=== PATIENT | female | born 1930 | race Hispanic/Latino ===

== ENCOUNTER 2019-08-07 14:40 | Emergency (ER) | payer MEDICARE ==
[2019-08-07 16:41] LABS: BASOPHILS % (AUTO) 0.3 % (0.0-5.0); EOSINOPHILS % (AUTO) 0.7 % (0.0-8.0); HEMATOCRIT 32.5 % (36-48); LYMPHOCYTES % (AUTO) 6.4 % (21.0-51.0); MEAN CORPUSCULAR HEMOGLOBIN 29.3 pg (27.0-33.0); MEAN CORPUSCULAR HGB CONC 31.7 g/dL (32.0-36.0); MEAN CORPUSCULAR VOLUME 92.3 fL (79-99); MONOCYTES % (AUTO) 7.3 % (3.0-13.0); NEUTROPHILS % (AUTO) 84.8 % (40.0-77.0); PLATELET COUNT (AUTO) 356 K/uL (130-400); RED BLOOD CELL COUNT(AUTO) 3.52 MIL/uL (4.00-5.50); RED CELL DISTRIBUTION WIDTH 14.3 % (11.0-15.5); WHITE BLOOD COUNT (AUTO) 10.9 K/uL (4.8-10.8)
[2019-08-07 16:52] LABS: CREATININE 1.2 mg/dL (0.5-1.5); POTASSIUM 4.1 mmol/L (3.5-5.1)
[2019-08-07 16:55] LABS: INR 1.23 (0.85-1.15); PARTIAL THROMBOPLASTIN TIME 41.4 SEC (26.3-35.5); PROTHROMBIN TIME 13.2 SEC (9.6-11.6)
[2019-08-07 16:56] LABS: BILIRUBIN,TOTAL 0.3 mg/dL (0.2-1.0); TOTAL PROTEIN, SERUM 7.2 g/dL (6.0-8.3)
[2019-08-07] MEDS ORDERED: KETOROLAC TROMETHAMINE 15MG/ML ONE (17:09)
[2019-08-07] MEDS ORDERED: ONDANSETRON HCL 4 MG/2 ML VIAL ONE (18:12)
[2019-08-07] MEDS ORDERED: MORPHINE SULFATE 2 MG/ML 1ML SYG ONE (18:12)
== END 2019-08-07 20:33 | disposition home or self-care (01) ==
LOC: EDBD 14:40 → EDH 14:40
DX: M54.5 Low back pain (principal); I89.0 Lymphedema, not elsewhere classified; I10 Essential (primary) hypertension; E07.9 Disorder of thyroid, unspecified; Z79.899 Other long term (current) drug therapy; Z85.41 Personal history of malignant neoplasm of cervix uteri
CPT/HCPCS: 36415; 80053; 85025; 85610; 85730; 96374; 96375; 99285; J1885; J2405

== ENCOUNTER 2019-10-25 13:41 | Inpatient (IN) | payer MEDICARE ==
[~2019-10-25] VITALS: Ht 152.4 cm; Wt 43.5 kg
[2019-10-25] MEDS ORDERED: CEFTRIAXONE SODIUM 2 GM VIAL ONE (14:12)
[2019-10-25 14:51] LABS: BASOPHILS % (AUTO) 0.1 % (0.0-5.0); EOSINOPHILS % (AUTO) 0.1 % (0.0-8.0); HEMATOCRIT 37.3 % (36-48); LYMPHOCYTES % (AUTO) 5.1 % (21.0-51.0); MEAN CORPUSCULAR HEMOGLOBIN 29.2 pg (27.0-33.0); MEAN CORPUSCULAR HGB CONC 31.1 g/dL (32.0-36.0); MONOCYTES % (AUTO) 5.4 % (3.0-13.0); NEUTROPHILS % (AUTO) 88.7 % (40.0-77.0); PLATELET COUNT (AUTO) 361 K/uL (130-400); RED BLOOD CELL COUNT(AUTO) 3.97 MIL/uL (4.00-5.50); RED CELL DISTRIBUTION WIDTH 18.2 % (11.0-15.5); WHITE BLOOD COUNT (AUTO) 16.2 K/uL (4.8-10.8)
[2019-10-25 15:19] LABS: INR 1.12 (0.85-1.15); PARTIAL THROMBOPLASTIN TIME 30.5 SEC (26.3-35.5)
[2019-10-25 15:26] LABS: CREATININE 1.3 mg/dL (0.5-1.5); POTASSIUM 4.3 mmol/L (3.5-5.1)
[2019-10-25 15:37] LABS: ALBUMIN 2.5 g/dL (3.5-5.0); BILIRUBIN,TOTAL 0.3 mg/dL (0.2-1.0); TOTAL PROTEIN, SERUM 7.1 g/dL (6.0-8.3); TROPONIN I 0.31 ng/mL (0.00-0.06)
[2019-10-25 16:38] LABS: ABG BASE EXCESS -6.8 mmol/L (-2.0-3.0); ABG HCO3 15.5 mmol/L (21.0-28.0); ABG OXYGEN SATURATION 94.9 % (95.0-99.0); ABG PCO2 24 mmHg (32-45)
[2019-10-25] MEDS ORDERED: IOHEXOL 350 MG/ML 100ML INFUS..BTL IV ONE (16:42)
[2019-10-25] MEDS ORDERED: LIDOCAINE HCL-MPF 1% 2ML VIAL IV PRN (18:30)
[2019-10-25] MEDS ORDERED: POTASSIUM CHLORIDE 20 MEQ ERTAB PO PRN (18:30)
[2019-10-25] MEDS ORDERED: ZOLPIDEM TARTRATE 5 MG TAB PO PRN (18:30)
[2019-10-25] MEDS ORDERED: HYDRALAZINE HCL 20 MG/ML VIAL IV PRN (18:30)
[2019-10-25] MEDS ORDERED: DEXTROSE 50%-WATER 50 ML DISP.SYRIN IV PRN (18:30)
[2019-10-25] MEDS ORDERED: LACTULOSE 20 GM/30 ML UDCUP PO PRN (18:30)
[2019-10-25] MEDS ORDERED: MAGNESIUM 2GM PREMIX 50ML 50 ML IV PRN (18:30)
[2019-10-25] MEDS ORDERED: ONDANSETRON HCL 4 MG/2 ML VIAL IVP PRN (18:30)
[2019-10-25] MEDS ORDERED: POTASSIUM CHLORIDE 20MEQ/100ML 100 ML IV PRN (18:30)
[2019-10-25] MEDS ORDERED: GLUCAGON 1MG KIT 1 MG ML IM PRN (18:30)
[2019-10-25] MEDS ORDERED: LOPERAMIDE HCL 2 MG CAP PO PRN (18:30)
[2019-10-25] MEDS ORDERED: POTASSIUM CHLORIDE 10% ELIXIR 20 MEQ/15 ML UDCUP PO PRN (18:30)
[2019-10-25 19:00] LABS: APPEARANCE,URINE Clear (CLEAR); BILIRUBIN,URINE Negative (NEGATIVE); COLOR,URINE Yellow (YELLOW); GLUCOSE, URINE (UA) Negative (NEGATIVE); KETONES,URINE Negative (NEGATIVE); LEUKOCYTE ESTERASE ,URINE Negative (NEGATIVE); NITRATE,URINE Negative (NEGATIVE); OCCULT BLOOD,URINE Negative (NEGATIVE); PROTEIN,URINE Negative (NEGATIVE)
[2019-10-25] MEDS: ENOXAPARIN SODIUM 60 MG/0.6 ML SQ SCH (21:00)
[2019-10-25] MEDS: INSULIN HUMULIN R 100 UNIT/ML 3ML SQ SCH (21:00)
[2019-10-25] MEDS: ZOSYN 3.375GM+NS 50ML 50 ML IV SCH (21:00)
[2019-10-25] MEDS ORDERED: SODIUM CHLORIDE 0.9% 500ML 500 ML IV SCH (21:15)
[2019-10-25] MEDS: SODIUM CHLORIDE 0.9% 1000ML 1,000 ML IV SCH (21:15)
[2019-10-25] MEDS ORDERED: ENOXAPARIN SODIUM 60 MG/0.6 ML SQ ONE (21:17)
[2019-10-26] VITALS: BP 150/90
[2019-10-26 04:00] VITALS: BP 132/62
--- NOTE | 2019-10-26 05:36 | NUR ---
ASSESSMENT PT. IS ALERT AND ORIENTED TIMES 4 NO COMPLAINTS OF ANY PAIN. THE PATIENT IS SATING MID 90'S ON 2 LITERS PT. HAS NS GOING AT 75 NO OTHER COMPLIANTS AT THIS TIME VITALS ARE STABLE WILL CONTINUE TO MONITOR.
[2019-10-26] MEDS: INSULIN HUMULIN R 100 UNIT/ML 3ML SQ SCH ×4 (05:50→20:05)
[2019-10-26 06:13] LABS: BASOPHILS % (AUTO) 0.1 % (0.0-5.0); EOSINOPHILS % (AUTO) 0.1 % (0.0-8.0); HEMATOCRIT 34.6 % (36-48); MEAN CORPUSCULAR HEMOGLOBIN 29.3 pg (27.0-33.0); MEAN CORPUSCULAR HGB CONC 31.2 g/dL (32.0-36.0); MONOCYTES % (AUTO) 4.8 % (3.0-13.0); NEUTROPHILS % (AUTO) 90.1 % (40.0-77.0); PLATELET COUNT (AUTO) 315 K/uL (130-400); RED BLOOD CELL COUNT(AUTO) 3.68 MIL/uL (4.00-5.50); RED CELL DISTRIBUTION WIDTH 17.9 % (11.0-15.5)
[2019-10-26 06:38] LABS: ALBUMIN 2.2 g/dL (3.5-5.0); BILIRUBIN,TOTAL 0.3 mg/dL (0.2-1.0); CREATININE 1.1 mg/dL (0.5-1.5); MAGNESIUM 1.9 mg/dL (1.80-2.40); PHOSPHORUS 4.3 mg/dL (2.5-4.9); POTASSIUM 4.3 mmol/L (3.5-5.1); TOTAL PROTEIN, SERUM 6.5 g/dL (6.0-8.3)
[2019-10-26 06:41] LABS: B-TYPE NATRIURETIC PEPTIDE 939 pg/mL (0-100)
[2019-10-26] MEDS: SODIUM CHLORIDE 0.9% 1000ML 1,000 ML IV SCH ×6 (07:44→23:15)
[2019-10-26 08:08] VITALS: BP 115/75
[2019-10-26] MEDS: ZOSYN 3.375GM+NS 50ML 50 ML IV SCH ×2 (08:32→21:17)
[2019-10-26] MEDS: DEXAMETHASONE SOD PHOSPHATE 4 MG/ML 1ML VIAL IVP SCH (08:33)
[2019-10-26] MEDS: ENOXAPARIN SODIUM 60 MG/0.6 ML SQ SCH ×2 (08:34→21:19)
[2019-10-26] MEDS: FAMOTIDINE 20MG TAB 20 MG TAB PO SCH (08:34)
[2019-10-26 12:28] VITALS: BP 120/70
[2019-10-26] MEDS: ACETAMINOPHEN 325 MG TAB PO PRN ×2 (15:59→18:09)
[2019-10-26 16:24] VITALS: BP 131/89
--- NOTE | 2019-10-26 18:05 | NUR ---
INITIAL SW spoke to patient's sister, Candice Lee. Patient lives with another sister, Jennifer Whitlock. She has no home health but has [facility] with [facility] x 36 hours a week. DME: BPM, wheelchair, rollator, shower chair. Patient needs help to complete ADL's and does not drive. Family assists as needed. PCP is Dr. Mark Forbes. Pharmacy is [facility] located on [facility] in [place]. Sister reports no safety concern with patient returning home. DCP is home. Addendum: 10/26/19 at 1808 by ILDEFONSO GANDARA Amended: Links added.
[2019-10-26 20:00] VITALS: BP 142/64
[2019-10-27] VITALS: BP 123/71
[2019-10-27] MEDS: SODIUM CHLORIDE 0.9% 1000ML 1,000 ML IV SCH ×2 (02:34→13:15)
[2019-10-27 04:00] VITALS: BP 100/73
[2019-10-27] MEDS: INSULIN HUMULIN R 100 UNIT/ML 3ML SQ SCH ×3 (06:21→16:30)
--- NOTE | 2019-10-27 07:20 | NUR ---
CALLED JERSON COCHRAN (PATIENT'S SISTER) TO OBTAIN CONSENT FOR DR. NIETO'S RECOMMENDED/PLANNED RIGHT THORACENTESIS TODAY. QUESTIONS ANSWERED, BUT STATES WILL CALL BACK LATER TODAY AFTER SHE DISCUSSES WITH HER FAMILY. PENDING CALL BACK.
[2019-10-27 08:21] VITALS: BP 117/78
[2019-10-27] MEDS: FAMOTIDINE 20MG TAB 20 MG TAB PO SCH (08:41)
[2019-10-27] MEDS: ZOSYN 3.375GM+NS 50ML 50 ML IV SCH (08:41)
[2019-10-27] MEDS: DEXAMETHASONE SOD PHOSPHATE 4 MG/ML 1ML VIAL IVP SCH (08:41)
[2019-10-27] MEDS: ENOXAPARIN SODIUM 60 MG/0.6 ML SQ SCH (08:42)
[2019-10-27 11:32] VITALS: BP 127/66
[2019-10-27 11:59] LABS: TOTAL PROTEIN, SERUM 6.5 g/dL (6.0-8.3)
[2019-10-27] MEDS ORDERED: LIDOCAINE HCL MPF 1% 5ML VIAL ONE (12:18)
[2019-10-27 15:08] LABS: APPEARANCE BODY FLUID CLEAR (CLEAR); COLOR,BODY FLUID YELLOW (LT YELLOW); SPECIMENTYPE,BODY FLUID PLEURAL; TOTAL VOLUME,BODY FLUID 700 mL
[2019-10-27 15:09] LABS: BODY FLUID RBC 302 /cu. mm.; BODY FLUID WBC 71 /cu. mm.
[2019-10-27 15:12] LABS: BF LYMPHOCYTE 16 %; BF MESOTHELIAL 64 %
[2019-10-27 16:13] VITALS: BP 107/72
--- NOTE | 2019-10-27 16:28 | NUR ---
Paracentesis Pt s/p paracentesis at bedside, 700 ml removed. fluid cx collected by and sent to lab. pt tolerated procedure. vss. dressing applied to site by MD. no bleeding noted. Addendum: 10/27/19 at 1836 by TIFFANIE BOO RN RN Correction Right Thoracentesis
--- NOTE | 2019-10-27 17:58 | NUR ---
CALLED AND SPOKE WITH PATIENT'S SISTER, JACE COCHRAN ) TO UPDATE PN PATIENT'S CONDITION (CODE BLUE)...JACE REQUESTED NO INTUBATION AND AGREED TO COMPRESSIONS AND MEDICATIONS ONLY. INFORMED DR. DE LA TORRE (AT BEDSIDE) AND STAFF. UPDATE GIVEN TO DR. NIETO (PCP).
--- NOTE | 2019-10-27 18:15 | NUR ---
CALLED AND INFORMED PATIENT'S SISTER, JACE COCHRAN OF PATIENT'S TIME OF . STATED HOME ARRANGEMENTS PENDING. SHE WILL CALL [employer] INSTALLER ONCE COMPLETED.
--- NOTE | 2019-10-29 11:28 | NUR ---
UPDATED [facility] HOME WITH COVID 19 NEGATIVE RESULT. SPOKE TO MITCH AND SHE REQUESTED A FAX COPY OF RESULT TO [phone]. JERSON COCHRAN SISTER, NOTIFIED OF COVID 19 NEGATIVE RESULT. I LET HER KNOW HOME WAS NOTIFIED AND WE WILL BE FAXING UPDATED DOCUMENTATION OF , COVID 19 PCR, AND ANTIGEN RESULTS, TO HOME. FAX COPIES SENT AT [phone].
== END 2019-10-27 18:10 | disposition expired | DRG 754 ==
LOC: EDH 13:41 → OBSVTOIN 18:03 → EDHIP 18:03 → 4AH 22:30
PROVIDERS: ADMIT Internal Medicine Critical Care Medicine; ATTEND Internal Medicine Critical Care Medicine
PROC: 0W993ZZ Drainage of Right Pleural Cavity, Percutaneous Approach (ICD-10-PCS; principal; 2019-10-25)
PROC: 5A12012 Performance of Cardiac Output, Single, Manual (ICD-10-PCS; 2019-10-25)
DX: C51.9 Malignant neoplasm of vulva, unspecified (principal); J18.9 Pneumonia, unspecified organism; J90 Pleural effusion, not elsewhere classified; J98.11 Atelectasis; E44.0 Moderate protein-calorie malnutrition; Z68.1 Body mass index [BMI] 19.9 or less, adult; E87.2 Acidosis; I82.491 Acute embolism and thrombosis of other specified deep vein of right lower extremity; R33.9 Retention of urine, unspecified; Z20.828 Contact with and (suspected) exposure to other viral communicable diseases; D72.829 Elevated white blood cell count, unspecified; I10 Essential (primary) hypertension; E03.9 Hypothyroidism, unspecified; Z85.44 Personal history of malignant neoplasm of other female genital organs; Y95 Nosocomial condition
CPT/HCPCS: 36415; 36600; 71045; 71275; 80053; 81003; 82550; 82728; 82803; 82945; 82948; 83605; 83615; 83735; 83874; 83880; 83986; 84100; 84145; 84155; 84157; 84484; 85025; 85378; 85610; 85730; 86900; 86901; 87040; 87071; 87088; 87116; 87205; 87206; 87426; 88112; 88305; 89051; 92950; 93005; 93306; 93970; C1729; G0378; J0696; J1100; J1650; J2543; J3490; J7030; Q9967; U0003